=== PATIENT | male | born 1965 | race African-American/Black ===

== ENCOUNTER 2022-09-20 14:20 | Emergency (ER) | payer SELFPAY ==
[~2022-09-20] VITALS: Ht 193 cm; Wt 108.0 kg
[2022-09-20 14:24] VITALS: BP 162/107
[2022-09-20] MEDS ORDERED: CEPH500T MT (17:52)
[2022-09-20] MEDS ORDERED: BACITRACIN ZINC OINT UDPKT TOP NR (18:00)
== END 2022-09-20 18:11 | disposition home or self-care (01) ==
LOC: ER 14:32
DX: L97.328 Non-pressure chronic ulcer of left ankle with other specified severity (principal); L03.116 Cellulitis of left lower limb; Z98.890 Other specified postprocedural states
CPT/HCPCS: 99283